=== PATIENT | male | born 1960 | race African-American/Black ===

== ENCOUNTER 2021-02-04 09:12 | Emergency (ER) | payer SELFPAY ==
[~2021-02-04] VITALS: Ht 175.3 cm; Wt 77.3 kg
[2021-02-04] MEDS ORDERED: LISI-893 PO (09:16)
[2021-02-04] MEDS ORDERED: MORPHINE SULFATE 2 MG/ML SYRINGE IVP ONE ×2 (10:15→11:00)
[2021-02-04 10:47] LABS: BASOPHILS % (AUTO) 0.3 % (0.0-2.0); EOSINOPHILS % (AUTO) 0.1 % (1.0-6.0); HEMATOCRIT 40.8 % (41-53); HEMOGLOBIN 13.7 g/dL (13.5-17.5); LYMPHOCYTES % (AUTO) 12.3 % (22.0-44.0); MEAN CORPUSCULAR HEMOGLOBIN 32.9 pg (26.0-34.0); MEAN CORPUSCULAR HGB CONC 33.6 G/dL (31.0-37.0); MEAN CORPUSCULAR VOLUME 98 fL (80-100); MONOCYTES # (AUTO) 0.4 K/uL (0.1-1.0); MONOCYTES % (AUTO) 5.3 % (2.0-9.0); NEUTROPHILS # (AUTO) 6.7 K/uL (1.8-7.7); PLATELET COUNT (AUTO) 269 K/uL (150-450); RED BLOOD CELL COUNT(AUTO) 4.17 MIL/uL (4.50-5.90); RED CELL DISTRIBUTION WIDTH 13.3 % (11.5-14.5)
[2021-02-04 10:56] LABS: ANION GAP 3 mmol/L (8-16); CARBON DIOXIDE 30 mmol/L (22-29); CHLORIDE 104 mmol/L (98-107); CREATININE 1.07 mg/dL (0.60-1.30); GLOMERULAR FILTR. RATE CALC > 60 mL/min (>60); GLUCOSE,RANDOM 121 mg/dL (70-110); POTASSIUM 3.9 mmol/L (3.5-5.1); SODIUM SERUM 137 mmol/L (136-145); UREA NITROGEN, BLOOD 13 mg/dL (7-18)
[2021-02-04 11:02] LABS: ALANINE AMINOTRANSFERASE 22 U/L (12-78); ALBUMIN 3.4 g/dL (3.4-5.0); ALKALINE PHOSPHATASE 95 U/L (46-116); ASPARTATE AMINOTRANSFERASE 21 U/L (15-37); BILIRUBIN,TOTAL 0.3 mg/dL (0.1-1.0); TOTAL PROTEIN, SERUM 7.6 g/dL (6.4-8.2)
[2021-02-04] MEDS ORDERED: POVIDONE-IODINE 10% 120 ML SOLUTION TP ONE (12:27)
[2021-02-04] MEDS ORDERED: LIDOCAINE 1% 10 ML VIAL ONE (12:27)
[2021-02-04] MEDS ORDERED: CeFAZolin 1 GM/DEXTROSE 50 ML IV ONE (12:45)
[2021-02-04 14:35] VITALS: BP 143/72
== END 2021-02-04 15:24 | disposition home or self-care (01) ==
LOC: EMS 09:16
DX: R33.9 Retention of urine, unspecified (principal); I10 Essential (primary) hypertension; F17.210 Nicotine dependence, cigarettes, uncomplicated
CPT/HCPCS: 36415; 51705; 80053; 85025; 96365; 96375; 96376; 99284; J0690; J2270; J3490

== ENCOUNTER 2021-02-06 10:03 | Emergency (ER) | payer MEDICAID ==
[~2021-02-06] VITALS: Ht 175.3 cm; Wt 90.0 kg
[~2021-02-06 10:03] MED LIST: LISI-893 PO
[2021-02-06 11:45] VITALS: BP 119/81
== END 2021-02-06 12:09 | disposition home or self-care (01) ==
LOC: EMS 10:33
DX: R33.9 Retention of urine, unspecified (principal)
CPT/HCPCS: 99281; Z7502

== ENCOUNTER 2021-02-12 11:36 | Emergency (ER) | payer MEDICAID ==
[~2021-02-12] VITALS: Ht 172.7 cm; Wt 85.5 kg
[2021-02-12 13:58] VITALS: BP 124/78
== END 2021-02-12 14:01 | disposition home or self-care (01) ==
LOC: EMS 11:49
DX: T83.028A Displacement of other urinary catheter, initial encounter (principal); I10 Essential (primary) hypertension; F17.210 Nicotine dependence, cigarettes, uncomplicated; Y84.6 Urinary catheterization as the cause of abnormal reaction of the patient, or of later complication, without mention of misadventure at the time of the procedure
CPT/HCPCS: 99281; Z7502